=== PATIENT | male | born 2005 | race Caucasian/White ===

== ENCOUNTER 2024-07-14 18:55 | Emergency (ER) | payer OTHER ==
[~2024-07-14] VITALS: Ht 185.4 cm; Wt 78.5 kg
[2024-07-14 20:08] LABS: BILIRUBIN,URINE NEGATIVE (Neg); CLARITY,URINE CLOUDY (Clear); COLOR,URINE YELLOW (Yellow); GLUCOSE, URINE NEGATIVE (Neg); KETONES,URINE NEGATIVE (Neg); LEUKOCYTE ESTERASE ,URINE NEGATIVE (Neg); NITRITES, URINE NEGATIVE (Neg); OCCULT BLOOD,URINE NEGATIVE (Neg); PH,URINE 7.5 (4.8-8.0); PROTEIN,URINE NEGATIVE (Neg); UROBILINOGEN,URINE 0.2 E.U/dL (0.2-1.0)
[2024-07-14 20:13] LABS: UA COLLECTION TYPE CLN CATCH MIDSTREAM
[2024-07-14 20:14] LABS: AMORPHOUS PHOSPHATES 3+; SQUAMOUS EPITHELIAL CELL,UR NONE SEEN /LPF (FEW)
[2024-07-14 20:15] LABS: BACTERIA,URINE NONE SEEN /HPF (Neg); RBC,URINE NONE SEEN /HPF (0-2); WBC,URINE NONE SEEN /HPF (0-4)
[2024-07-14 20:51] VITALS: BP 132/74; PULSE 67; RESP 16; TEMP 99.1; O2SAT 98
== END 2024-07-14 20:54 | disposition home or self-care (01) ==
LOC: ER 18:56
DX: N50.811 Right testicular pain (principal)
CPT/HCPCS: 76870; 81001; 93976; 99284